=== PATIENT | female | born 1990 | race Caucasian/White ===

== ENCOUNTER 2017-02-18 17:27 | Emergency (ER) | payer OTHER ==
[2017-02-18 17:30] VITALS: BP 138/81; PULSE 82; TEMP 97.7; BMI 25.4
--- NOTE | 2017-02-18 19:04 | PDOC ---
History of Present Illness - General Chief Complaint: Eye Problem Stated Complaint: EYE PROBLEM Time Seen by Provider: 02/18/17 18:50 History Source: Patient Exam Limitations: No Limitations - History of Present Illness Initial Comments: 02/18/17 18:58 CHIEF COMPLAINT: Redness to left eye HISTORY OF PRESENT ILLNESS: Patient is a 26-year-old female, no significant medical history currently on no medication wears contact lenses woke up today with drainage and pruritus to left eye. Did remove her contact lens last evening , denies injury. No visual disturbance visual acuity is 20/20. REVIEW OF SYSTEMS: GENERAL/CONSTITUTIONAL: No fever or chills. No weakness. No weight change. HEAD, EYES, EARS, NOSE AND THROAT: No change in vision. Drainage and pruritus to left eye. No ear pain or discharge. No sore throat. RESPIRATORY: No cough, wheezing, or hemoptysis. SKIN : No rash or easy bruising. NEUROLOGIC: No headache, vertigo, loss of consciousness, or loss of sensation. HEMATOLOGIC/LYMPHATIC: No lymphadenopathy ALLERGIC/IMMUNOLOGIC: No hives or skin allergy. No latex allergy. PHYSICAL EXAM: GENERAL: The patient is awake, alert, and fully oriented, in no acute distress. HEAD: Normal with no signs of trauma. EYES: Pupils equal, round and reactive to light, extraocular movements intact, sclera anicteric, conjunctiva injected, extending to limbus after fluorescein staining, no corneal abrasion noted. ENT: Ears normal, nares patent, oropharynx clear without exudates. Moist mucous membranes. NECK: Normal range of motion, supple without lymphadenopathy, JVD, or masses. LUNGS: Breath sounds equal, clear to auscultation bilaterally. No wheezes, and no crackles. NEUROLOGICAL: Cranial nerves II through XII grossly intact. Normal speech, normal gait. SKIN: No erythema no facial edema. Warm, Dry, normal turgor, no rashes or lesions noted. Past History - Past Medical History Allergies/Adverse Reactions: Allergies Allergy/AdvReac Type Severity Reaction Status Date / Time No Known Allergies Allergy Verified 02/18/17 17:30 Home Medications: Ambulatory Orders Moxifloxacin HCl [Vigamox 0.5% Eye Drops -] 1 drop OS TID #1 bottle 02/18/17 Other medical history: denies - Suicide/Smoking/Psychosocial Hx Smoking History: Never smoked Information on smoking cessation initiated: No Hx Alcohol Use: No Drug/Substance Use Hx: No Substance Use Type: None *Physical Exam - Vital Signs Last Vital Signs Temp Pulse Resp BP Pulse Ox 97.7 F 82 18 138/81 100 02/18/17 17:28 02/18/17 17:28 02/18/17 17:28 02/18/17 17:28 02/18/17 17:28 Medical Decision Making - Medical Decision Making 02/18/17 23:26 A/P: Patient with conjunctivitis to left eye, discharge on Vigamox to follow up with ophthalmology if symptoms persist patient reports that her contact lenses are daily wear and she has thrown out the pad that she had on yesterday. Will not wear contact lenses until eyes fully healed. I discussed the physical exam findings, ancillary test results and final diagnoses with the patient. I answered all of the patient's questions. The patient was satisfied with the care received and felt comfortable with the discharge plan and treatment plan. The patient will call to arrange follow-up and will return to the Emergency Department with any new, persistent or worsening symptoms. *DC/Admit/Observation/Transfer Diagnosis at time of Disposition: Conjunctivitis Qualifiers: Conjunctivitis type: acute Acute conjunctivitis type: bacterial Laterality: left Qualified Code(s): H10.32 - Unspecified acute conjunctivitis, left eye - Discharge Dispostion Disposition: HOME Condition at time of disposition: Good Admit: No - Prescriptions Prescriptions: Moxifloxacin HCl [Vigamox 0.5% Eye Drops -] 1 drop OS TID #1 bottle - Referrals Referrals: Aldo Gomez MD [Staff Physician] - - Patient Instructions Printed Discharge Instructions: DI for Conjunctivitis Additional Instructions: * Refrain from touching or scratching eye * Please wash hands frequently * Please followup with his primary care doctor in 2 days if symptoms persist * Medication as prescribed * Warm compresses to eye * If increased redness, swelling, pain to the eye please follow up with primary care doctor immediately or return to emergency room - Post Discharge Activity Forms/Work/School Notes: Back to Work
== END 2017-02-18 19:07 | disposition home or self-care (01) ==
LOC: JERFT 17:27
DX: H10.32 Unspecified acute conjunctivitis, left eye (principal)
CPT/HCPCS: 99281-25